=== PATIENT | male | born 1980 | race Caucasian/White ===

== ENCOUNTER 2020-09-22 12:45 | Inpatient (IN) | payer BC ==
[2020-09-22 13:33] VITALS: BMI 24.7
[2020-09-22] MEDS ORDERED: MAG HYDROX/AL HYDROX/SIMETH 30 ML UNIT-DOSE CUP PO PRN (13:42)
[2020-09-22] MEDS ORDERED: BISMUTH SUBSALICYLATE 524 MG/30 ML PO PRN (13:42)
[2020-09-22] MEDS ORDERED: MENTHOL/PHENOL 1 EACH UD MM PRN (13:42)
[2020-09-22] MEDS ORDERED: METHOCARBAMOL 500 MG TABLET PO PRN (13:42)
[2020-09-22] MEDS ORDERED: ACETAMINOPHEN 325 MG TABLET (FP) PO PRN ×2 (13:42)
[2020-09-22] MEDS ORDERED: ONDANSETRON *ODT* 4 MG TABLET SL PRN (13:42)
[2020-09-22] MEDS ORDERED: IBUPROFEN 400 MG TABLET (FP) PO PRN (13:42)
[2020-09-22] MEDS ORDERED: MAGNESIUM HYDROX 2400MG/30ML ORAL SUSPENSION 30 ML CUP PO PRN (13:42)
[2020-09-22] MEDS ORDERED: MAGNESIUM CITRATE 300 ML BOTTLE PO PRN (13:42)
[2020-09-22] MEDS ORDERED: NICOTINE POLACRILEX 2 MG GUM BUC PRN (13:42)
[2020-09-22] MEDS: NICOTINE 21 MG/24 HOURS TOPICAL PATCH TD SCH (16:02)
[2020-09-22] MEDS: hydrOXYzine PAMOATE 25 MG CAPSULE (FP) PO SCH ×3 (16:02→23:17)
[2020-09-22] MEDS: LORazepam 2 MG TABLET PO SCH ×2 (16:02→23:18)
[2020-09-22] MEDS: MELATONIN 5 MG TABLETS PO SCH (23:17)
[2020-09-22] MEDS: THIAMINE HCL 100 MG TABLET (FP) PO SCH (23:17)
[2020-09-23] MEDS: hydrOXYzine PAMOATE 25 MG CAPSULE (FP) PO SCH ×3 (05:32→14:18)
[2020-09-23] MEDS: LORazepam 2 MG TABLET PO SCH ×4 (05:33→22:04)
[2020-09-23] MEDS ORDERED: cloNIDine HCL 0.1 MG TABLET PO PRN (09:58)
[2020-09-23] MEDS ORDERED: PRENATAL VITAMINS W/ FOLIC ACID TABLET (FP) PO SCH (10:00)
[2020-09-23] MEDS: NICOTINE 21 MG/24 HOURS TOPICAL PATCH TD SCH (10:29)
[2020-09-23 12:34] LABS: HEMATOCRIT 40.9 % (35.4-49); HEMOGLOBIN 13.8 GM/dL (11.7-16.9); MCH 32.7 pg (25.7-33.7); MCHC 33.8 g/dl (32.0-35.9); MEAN CELL VOLUME 96.7 fl (80-96); MEAN PLT VOLUME 7.8 fl (7.5-11.1); PLATELET COUNT 383 10^3/uL (134-434); RBC 4.23 M/mm3 (4.00-5.60); RDW 13.9 % (11.9-15.9); WHITE BLOOD COUNT 16.7 K/mm3 (4.0-10.0)
[2020-09-23 13:01] LABS: ALBUMIN 3.8 g/dl (3.4-5.0); BLOOD UREA NITROGEN 10.3 mg/dL (7-18); CALCIUM 9.4 mg/dL (8.5-10.1)
[2020-09-23 13:05] LABS: BILIRUBIN,TOTAL 0.4 mg/dL (0.2-1)
[2020-09-23 13:07] LABS: TOT PROT 7.3 g/dl (6.4-8.2)
[2020-09-23] MEDS: LORazepam 1 MG TABLET PO PRN ×2 (14:49→20:46)
[2020-09-23] MEDS: hydrOXYzine PAMOATE 25 MG CAPSULE (FP) PO PRN ×2 (17:13→22:06)
[2020-09-23] MEDS: MELATONIN 5 MG TABLETS PO SCH (22:04)
[2020-09-23] MEDS: THIAMINE HCL 100 MG TABLET (FP) PO SCH (22:04)
[2020-09-24] MEDS: hydrOXYzine PAMOATE 25 MG CAPSULE (FP) PO PRN (04:02)
[2020-09-24] MEDS ORDERED: LORazepam 1 MG TABLET PO SCH (05:00)
[2020-09-24] MEDS: LORazepam 1 MG TABLET PO PRN (07:51)
[2020-09-24] MEDS ORDERED: diazePAM 5 MG TABLET PO PRN (08:05)
[2020-09-24] MEDS ORDERED: MELATONIN 5 MG TABLETS PO SCH (08:12)
[2020-09-24 09:41] VITALS: BP 114/78; PULSE 109; TEMP 96.8
[2020-09-24] MEDS ORDERED: diazePAM 5 MG TABLET PO SCH (14:00)
[2020-09-25] MEDS ORDERED: LORazepam 0.5 MG TABLET PO PRN
[2020-09-25] MEDS ORDERED: diazePAM 5 MG TABLET PO PRN (00:01)
[2020-09-25] MEDS ORDERED: LORazepam 0.5 MG TABLET PO SCH (05:00)
[2020-09-25] MEDS ORDERED: diazePAM 5 MG TABLET PO SCH (08:15)
[2020-09-26] MEDS ORDERED: LORazepam 0.5 MG TABLET PO ONE (05:00)
[2020-09-26] MEDS ORDERED: diazePAM 5 MG TABLET PO ONE (05:00)
== END 2020-09-24 09:20 | disposition left against medical advice (07) | DRG 770 ==
LOC: YASAS 12:45 → Y3N 14:28
PROVIDERS: ADMIT Allergy & Immunology; ATTEND Allergy & Immunology
PROC: HZ2ZZZZ Detoxification Services for Substance Abuse Treatment (ICD-10-PCS; principal; 2020-09-22)
DX: F10.230 Alcohol dependence with withdrawal, uncomplicated (principal); F17.210 Nicotine dependence, cigarettes, uncomplicated; E78.5 Hyperlipidemia, unspecified; R56.9 Unspecified convulsions; I69.851 Hemiplegia and hemiparesis following other cerebrovascular disease affecting right dominant side
CPT/HCPCS: 36415; 80053; 85027; 86780; 93005; 93010; C9803; J0735; U0003; U0005